=== PATIENT | male | born 1970 | race Caucasian/White ===

== ENCOUNTER 2019-03-17 18:27 | Emergency (ER) | payer OTHER ==
--- NOTE | 2019-03-17 19:23 | XR ---
EXAMINATION TYPE: XR ribs RT w pa chest xray DATE OF EXAM: 03/17/2019 CLINICAL HISTORY: Right rib pain with no known injury. TECHNIQUE: Single frontal view of the chest is obtained. 2 views of the right ribs were obtained COMPARISON: None FINDINGS: There is no focal air space opacity, pleural effusion, or pneumothorax seen. There is a tr pino left pleural effusion and left basilar airspace disease. The cardiac silhouette size is within n ormal limits. Moderate degenerative changes of the spine are noted. No acute displaced right rib frac ture is evident nor chronic healed right rib fracture deformity. IMPRESSION: 1. Trace left pleural effusion and left basilar airspace disease, likely atelectasis. 2. No acute displaced rib fracture.
[2019-03-17] MEDS ORDERED: KETOROLAC 30 MG/ML 1 ML VIAL IVP STA (19:58)
--- NOTE | 2019-03-17 20:21 | ED ---
Chest Pain HPI - General Chief Complaint: Shortness of Breath Stated Complaint: Chest Pain Time Seen by Provider: 03/17/19 18:49 Source: EMS, RN notes reviewed, old records reviewed Mode of arrival: EMS Limitations: no limitations - History of Present Illness Initial Comments: This is a 49-year-old male the ER for evaluation is a patient transfer from [facility] for evasive right sided pain patient complains of severe pain underneath his right pectoral area, patient's a cough for 2 days states everybody is sick at [place] states he feels during 1 of his causing ataxia may have injured his rib. No other trauma. No fevers. No shortness of breath except pain when he takes a deep breath. He states the pain was very severe prior to arrival is slowly improving. He has a history of liver disease and pancreatitis. Does not feel somewhat ill contacts. No other change in medications. Patient has gone for through alcohol withdrawal treated with Ativan with significant improvement in symptoms MD Complaint: chest pain (Right-sided rib pain) -: hour(s) Onset: during rest Pain Location: right chest (Right rib pain under right back) Pain Radiation: none Severity: moderate Severity scale (1-10): 7 Quality: sharp Consistency: intermittent (Worse when he coughs) Improves With: nothing Worsens With: inspiration Context: recent illness ( has had a cough for 2 days) Other Symptoms: cough Treatments Prior to Arrival: none - Related Data Allergies Allergy/AdvReac Type Severity Reaction Status Date / Time Penicillins Allergy Unknown Verified 03/17/19 20:14 Review of Systems ROS Statement: Those systems with pertinent positive or pertinent negative responses have been documented in the HPI. ROS Other: All systems not noted in ROS Statement are negative. Past Medical History Additional Past Medical History / Comment(s): Liver disease, necrotice pancreatitis, "colapsed lung left side" History of Any Multi-Drug Resistant Organisms: C-DIFF Date of last positivie culture/infection: 2019 Past Surgical History: No Surgical Hx Reported Past Psychological History: Depression Smoking Status: Current every day smoker Past Alcohol Use History: Abuse, Daily Past Drug Use History: None Reported General Exam Limitations: no limitations General appearance: alert, in no apparent distress Head exam: Present: atraumatic, normocephalic, normal inspection Eye exam: Present: normal appearance, PERRL, EOMI. Absent: scleral icterus, conjunctival injection, periorbital swelling ENT exam: Present: normal exam, mucous membranes moist Neck exam: Present: normal inspection. Absent: tenderness, meningismus, lymphadenopathy Respiratory exam: Present: normal lung sounds bilaterally. Absent: respiratory distress, wheezes, rales, rhonchi, stridor Cardiovascular Exam: Present: regular rate, normal rhythm, normal heart sounds, other (Significant right-sided chest wall tenderness). Absent: systolic murmur, diastolic murmur, rubs, gallop, clicks GI/Abdominal exam: Present: soft, normal bowel sounds. Absent: distended, tenderness, guarding, rebound, rigid Extremities exam: Present: normal inspection, full ROM, normal capillary refill. Absent: tenderness, pedal edema, joint swelling, calf tenderness Back exam: Present: normal inspection Neurological exam: Present: alert, oriented X3, CN II-XII intact Psychiatric exam: Present: normal affect, normal mood Skin exam: Present: warm, dry, intact, normal color. Absent: rash Course Vital Signs 03/17/19 03/17/19 03/17/19 18:37 18:39 19:00 Temperature 99.4 F Pulse Rate 101 H Respiratory 18 29 H Rate Blood Pressure 110/79 110/79 116/75 O2 Sat by Pulse 98 97 97 Oximetry 03/17/19 03/17/19 03/17/19 19:08 19:30 20:00 Temperature Pulse Rate 96 96 Respiratory 20 13 15 Rate Blood Pressure 162/96 120/75 O2 Sat by Pulse 98 98 Oximetry - Reevaluation(s) Reevaluation #1: 03/17/19 20:19 Medical record is reviewed 03/17/19 20:30 Patient symptoms are currently improved with Toradol Reevaluation #2: 03/17/19 20:20 Spoke with patient at length regarding worsening symptoms returned ER for further evaluation and management. States he feels improved good for discharge home Chest Pain MDM - MDM 29 male the ER with right-sided chest wall pain worsening takes a brief deep breath worse with palpation. No significant vital sign abnormalities. Blood pressure is normal. Chest x-ray negative for acute disease Patient is a smoker with cough, suspect rib contusion versus maybe dislocation. At this point patient can be discharged Disposition Clinical Impression: Chest wall pain, Rib pain on right side Disposition: HOME SELF-CARE Condition: Good Instructions (If sedation given, give patient instructions): Rib Contusion (ED), Costochondritis (ED) Is patient prescribed a controlled substance at d/c from ED?: No Referrals: Nonstaff,Physician [Primary Care Provider] - 1-2 days
[2019-03-17 20:58] VITALS: BP 125/87; PULSE 87; RESP 16; TEMP 98.4
== END 2019-03-17 20:58 | disposition home or self-care (01) ==
LOC: EC 18:27
DX: R07.81 Pleurodynia (principal); R07.89 Other chest pain; R05 Cough; F17.200 Nicotine dependence, unspecified, uncomplicated; Z88.0 Allergy status to penicillin; Z87.09 Personal history of other diseases of the respiratory system
CPT/HCPCS: 93005; 71101; 99285; 96374; J1885